=== PATIENT | female | born 1965 | race Caucasian/White ===

== ENCOUNTER 2017-04-29 05:18 | Day surgery (SDC) | payer MEDICAID ==
[~2017-04-29] VITALS: Ht 160 cm; Wt 85.3 kg
[2017-04-29 06:27] LABS: UCG SCREEN NEGATIVE
[2017-04-29] MEDS ORDERED: LACTATED RINGERS 1,000 ML IV SCH (06:30)
[2017-04-29] MEDS ORDERED: OMEP20TA80 PO (06:32)
[2017-04-29] MEDS ORDERED: ATOR10TA69 PO (06:32)
[2017-04-29] MEDS ORDERED: TRAM50TA3 PO (06:32)
[2017-04-29] MEDS ORDERED: AMLO2.5T45 PO (06:32)
[2017-04-29] MEDS ORDERED: EPINEPHRINE 1:1000 1 MG/ML AMP ONE (07:19)
[2017-04-29] MEDS ORDERED: BUPIVACAINE/EPINEPH/PF 0.25%/0.0005 10ML ONE ×2 (07:24→08:23)
[2017-04-29] MEDS ORDERED: FENTANYL CITRATE/PF 50MCG/ML 2ML VIAL ONE (08:04)
[2017-04-29] MEDS ORDERED: MIDAZOLAM HCL 2 MG/2 ML VIAL ONE (08:05)
[2017-04-29] MEDS ORDERED: PROPOFOL 200MG/20ML VIAL IV ONE (08:06)
[2017-04-29] MEDS ORDERED: LIDOCAINE HCL 1% 20ML VIAL (Pyxis) INJ ONE (08:13)
[2017-04-29] MEDS ORDERED: CEFAZOLIN SODIUM 1000MG/VIAL ONE (08:17)
[2017-04-29] MEDS ORDERED: KETOROLAC 30MG/ML VIAL ONE (08:18)
[2017-04-29] MEDS ORDERED: ONDANSETRON HCL 4MG/2ML VIAL ONE (08:20)
[2017-04-29] MEDS ORDERED: METOCLOPRAMIDE HCL 10MG/2ML VIAL ONE (08:35)
[2017-04-29] MEDS ORDERED: MORPHINE SULFATE/PF 1MG/ML 10ML AMP ONE (08:48)
[2017-04-29] MEDS ORDERED: MEPERIDINE HCL/PF 25MG/ML CPJ IV PRN (09:30)
[2017-04-29] MEDS ORDERED: LABETALOL HCL 20MG/4ML CARPUJECT IV PRN (09:30)
[2017-04-29] MEDS ORDERED: ONDANSETRON HCL 4MG/2ML VIAL IV PRN ×2 (09:30→10:15)
[2017-04-29] MEDS: HYDROMORPHONE HCL/PF 2MG/ML CPJ IV PRN ×2 (09:46→09:53)
[2017-04-29] MEDS ORDERED: HYDROCODONE/ACETAMINOPHEN 5/325MG TABLET PO PRN (10:15)
[2017-04-29 12:20] VITALS: BP 94/58
== END 2017-04-29 12:30 | disposition home or self-care (01) ==
LOC: OR 05:18
PROVIDERS: ATTEND Orthopaedic Surgery
DX: S83.241A Other tear of medial meniscus, current injury, right knee, initial encounter (principal); X58.XXXA Exposure to other specified factors, initial encounter; Y93.9 Activity, unspecified; Y92.89 Other specified places as the place of occurrence of the external cause; Y99.9 Unspecified external cause status; M22.41 Chondromalacia patellae, right knee; M65.9 Synovitis and tenosynovitis, unspecified; I10 Essential (primary) hypertension; E66.9 Obesity, unspecified
CPT/HCPCS: 29881; 81025; 88305; 88311; 97116; 97161; J0171; J0690; J1170; J1885; J2250; J2405; J2765; J3010; J3490; J7120; L1830; J2274; J2704